=== PATIENT | female | born 1995 | race Caucasian/White ===

== ENCOUNTER 2016-12-21 14:48 | Emergency (ER) | payer BC ==
[~2016-12-21] VITALS: Ht 165.1 cm; Wt 79.4 kg
[~2016-12-21 14:48] MED LIST: ERYTHROMYCIN E3.5 G1 OPHTHALMIC
[2016-12-21] MEDS ORDERED: TUSSIONEX PENN115 ML PO (15:16)
[2016-12-21] MEDS ORDERED: PROAIR HFA8.5 GM INH (15:16)
[2016-12-21 15:38] VITALS: BP 118/86
== END 2016-12-21 15:52 | disposition home or self-care (01) ==
LOC: ER 14:48
DX: J06.9 Acute upper respiratory infection, unspecified (principal); F10.99 Alcohol use, unspecified with unspecified alcohol-induced disorder

== ENCOUNTER 2017-02-28 18:46 | Emergency (ER) | payer BC ==
[~2017-02-28] VITALS: Ht 165.1 cm; Wt 82.1 kg
[~2017-02-28 18:46] MED LIST changes: +PROAIR HFA8.5 GM INH; +TUSSIONEX PENN115 ML PO
[2017-02-28 19:25] LABS: URINE BILIRUBIN NEGATIVE (Negative); URINE BLOOD 1+ (Negative); URINE COLOR YELLOW; URINE GLUCOSE-RANDOM* NEGATIVE (Negative); URINE KETONES 1+ (Negative); URINE NITRITE NEGATIVE (Negative); URINE PROTEIN (DIPSTICK) NEGATIVE (Negative); URINE SPECIFIC GRAVITY 1.015 (1.005-1.035); URINE UROBILINOGEN 0.2 E.U./dl (0.2-1.0)
[2017-02-28 19:32] LABS: BACTERIA 1-9 Few /HPF (None Seen); CASTS None Seen /LPF (None Seen); SQUAMOUS 0-3 Few /LPF (0-3); URINE RBC 0-2 Rare /HPF (0-2); URINE WBC 0-5 Rare /HPF (0-5)
[2017-02-28 19:33] LABS: CRYSTALS None Seen /LPF (None Seen)
[2017-02-28] MEDS ORDERED: TRAMADOL 50 MG50 MG PO (20:01)
[2017-02-28] MEDS ORDERED: PREDNISONE50 MG PO (20:01)
[2017-02-28 20:35] VITALS: BP 138/87
== END 2017-02-28 20:35 | disposition home or self-care (01) ==
LOC: ER 18:46
PROVIDERS: Emergency Medicine
DX: S39.012A Strain of muscle, fascia and tendon of lower back, initial encounter (principal); M54.41 Lumbago with sciatica, right side; W18.39XA Other fall on same level, initial encounter; Y93.89 Activity, other specified; Y92.89 Other specified places as the place of occurrence of the external cause; Y99.8 Other external cause status